=== PATIENT | female | born 1995 | race Caucasian/White ===

== ENCOUNTER 2016-05-07 17:32 | Inpatient (IN) | payer MEDICAID ==
[2016-05-07] MEDS ORDERED: fentaNYL 100 MCG/2 ML VIAL ONE (18:59)
[2016-05-07] MEDS ORDERED: BUPIVACAINE EP ONE (19:00)
[2016-05-07] MEDS ORDERED: SUFENTANIL EP ONE (19:00)
[2016-05-07] MEDS ORDERED: LACTATED RINGERS 1,000 ML IV SCH (19:00)
[2016-05-07] MEDS ORDERED: OXYTOCIN/LACTATED RINGERS 250 ML IV ONE (19:01)
[2016-05-07] MEDS ORDERED: PENICILLIN G POTASSIUM 5,000,000 UNIT in SODIUM CHLORIDE 0.9% MINIBAG 100 ML IV ONE (19:30)
[2016-05-07] MEDS ORDERED: HYDROcod/ACET 5/325 Prepack 6 PO PRN (20:35)
[2016-05-07] MEDS ORDERED: NAPROXEN 375 MG PO SCH (21:00)
[2016-05-07] MEDS ORDERED: SODIUM CHLORIDE FLUSH 0.9% 10 ML SYRINGE IVP ONE (21:30)
[2016-05-07] MEDS ORDERED: LABETALOL 100 MG TABLET PO SCH (23:00)
[2016-05-08] MEDS ORDERED: PENICILLIN G POTASSIUM 2,500,000 UNIT in SODIUM CHLORIDE 0.9% 100ML 100 ML IV SCH ×2
[2016-05-08] MEDS: IBUPROFEN 600 MG TABLET PO SCH ×2 (00:23→06:45)
[2016-05-08] MEDS ORDERED: SODIUM CHLORIDE FLUSH 0.9% 10 ML SYRINGE IVP ONE ×3 (00:57→16:15)
[2016-05-08] MEDS: LACTATED RINGERS 1,000 ML IV SCH (07:39)
[2016-05-08] MEDS: LABETALOL 100 MG TABLET PO SCH ×2 (08:19→21:19)
[2016-05-08] MEDS ORDERED: ACETAMINOPHEN 325 MG SUPP PR PRN (09:01)
[2016-05-08] MEDS: PRENATAL VITAMIN TABLET PO SCH (12:34)
[2016-05-08] MEDS: ACETAMINOPHEN 325 MG TABLET PO PRN ×2 (12:34→16:53)
[2016-05-08] MEDS: DOCUSATE SODIUM 100 MG CAPSULE PO SCH ×2 (12:34→21:18)
[2016-05-09] MEDS ORDERED: SODIUM CHLORIDE FLUSH 0.9% 10 ML SYRINGE IVP ONE (01:07)
[2016-05-09] MEDS: ACETAMINOPHEN 325 MG TABLET PO PRN ×3 (04:17→23:23)
[2016-05-09] MEDS: HYDROcod/ACETAM 5/325 MG TABLET PO PRN ×3 (05:02→13:39)
[2016-05-09] MEDS: PRENATAL VITAMIN TABLET PO SCH (08:30)
[2016-05-09] MEDS: LABETALOL 100 MG TABLET PO SCH ×2 (08:31→20:49)
[2016-05-09] MEDS: DOCUSATE SODIUM 100 MG CAPSULE PO SCH ×2 (08:31→20:49)
[2016-05-10] MEDS: PRENATAL VITAMIN TABLET PO SCH (08:32)
[2016-05-10] MEDS: LABETALOL 100 MG TABLET PO SCH (08:32)
[2016-05-10] MEDS: DOCUSATE SODIUM 100 MG CAPSULE PO SCH ×2 (08:32→21:04)
[2016-05-10] MEDS ORDERED: SODIUM CHLORIDE FLUSH 0.9% 10 ML SYRINGE IVP ONE ×2 (09:37→10:24)
[2016-05-10] MEDS ORDERED: MAGNESIUM SULFATE 5 GM/10 ML VIAL IV STA (09:48)
[2016-05-10] MEDS ORDERED: MAGNESIUM SULFATE 4 GM in SODIUM CHLORIDE 0.9% 50 ML IV SCH (10:00)
[2016-05-10] MEDS ORDERED: LACTATED RINGERS 1,000 ML IV ONE (10:05)
[2016-05-10] MEDS ORDERED: LABETALOL 100 MG TABLET PO SCH (10:20)
[2016-05-10] MEDS: MAGNESIUM SULFATE 2 GRAM 50 ML IV ONE ×2 (10:22→10:46)
[2016-05-10] MEDS ORDERED: MAGNESIUM SULFATE 2 GRAM 50 ML IV ONE (10:41)
[2016-05-10] MEDS: MAGNESIUM SULFATE 40 GM in LACTATED RINGERS 420 ML IV SCH (11:05)
[2016-05-10] MEDS: IBUPROFEN 600 MG TABLET PO SCH ×2 (12:15→18:14)
[2016-05-10] MEDS: ACETAMINOPHEN 325 MG TABLET PO PRN ×2 (15:09→20:01)
[2016-05-11] MEDS: IBUPROFEN 600 MG TABLET PO SCH ×5 (00:29→23:56)
[2016-05-11] MEDS ORDERED: LACTATED RINGERS 1,000 ML IV ONE (03:52)
[2016-05-11] MEDS: MAGNESIUM SULFATE 40 GM in LACTATED RINGERS 420 ML IV SCH (07:22)
[2016-05-11] MEDS ORDERED: LABETALOL 100 MG TABLET PO SCH (09:00)
[2016-05-11] MEDS: DOCUSATE SODIUM 100 MG CAPSULE PO SCH ×2 (09:25→21:44)
[2016-05-11] MEDS ORDERED: MAGNESIUM SULFATE 1 GM in SODIUM CHLORIDE 0.9% 50 ML IV ONE ×2 (10:24→17:57)
[2016-05-11] MEDS ORDERED: LABETALOL 100 MG TABLET PO ONE (11:00)
[2016-05-11] MEDS: LABETALOL 100 MG TABLET PO SCH (21:45)
[2016-05-12] MEDS ORDERED: SODIUM CHLORIDE FLUSH 0.9% 10 ML SYRINGE IVP ONE (08:58)
[2016-05-12] MEDS: DOCUSATE SODIUM 100 MG CAPSULE PO SCH (09:03)
[2016-05-12] MEDS: LABETALOL 100 MG TABLET PO SCH (09:03)
[2016-05-12] MEDS: IBUPROFEN 600 MG TABLET PO SCH ×2 (09:04→15:57)
[2016-05-12] MEDS: PRENATAL VITAMIN TABLET PO SCH (09:04)
== END 2016-05-12 18:00 | disposition home or self-care (01) | DRG 774 ==
PROC: 10E0XZZ Delivery of Products of Conception, External Approach (ICD-10-PCS; principal; 2016-05-07)
DX: O13.4 Gestational [pregnancy-induced] hypertension without significant proteinuria, complicating childbirth (principal); O14.25 HELLP syndrome, complicating the puerperium; Z3A.40 40 weeks gestation of pregnancy; Z37.0 Single live birth

== ENCOUNTER 2016-10-25 14:21 | Emergency (ER) | payer MEDICAID ==
[2016-10-25] MEDS ORDERED: AMOX/CLAV 875 MG/125 MG TABLET PO STA (14:38)
[2016-10-25] MEDS ORDERED: TETANUS/DIPHTHERIA/PERTUSSIS 0.5 ML SYRINGE IM ONE ×2 (14:38→14:56)
[2016-10-25] MEDS ORDERED: AMOX/CLAV 875 MG/125 MG TABLET PO ONE (14:56)
--- NOTE | 2016-10-25 15:21 | ED Physician Documentation ---
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 UTD denies preg Review of Systems Constitutional: denies: Fever, Chills : denies: Now EGA Skin: reports: Bite / sting PD PAST MEDICAL HISTORY - Past Medical History Cardiovascular: None Endocrine/Autoimmune: None Musculoskeletal: Chronic back pain - Past Surgical History Past Surgical History: No - Present Medications Home Medications: Ambulatory Orders Medication Instructions Recorded Confirmed Pnv95/Iron Fum/Folic Acid 1 each PO DAILY 11/13/15 10/25/16 [ Caplet] Amox/Clav 875/125 [Augmentin] 1 each PO Q12H #14 tablet 10/25/16 - Allergies Allergies/Adverse Reactions: Allergies Allergy/AdvReac Type Severity Reaction Status Date / Time No Known Drug Allergies Allergy Verified 10/25/16 14:26 - Social History Does the pt smoke?: Yes Smoking Status: Never smoker Does the pt drink ETOH?: No Does the pt have substance abuse?: No - Immunizations Immunizations are current?: Yes - POLST Patient has POLST: No PD ED PE NORMAL - Vitals Vital signs reviewed: Yes - Derm Derm: Other (soft tissue bruising in a bite shape with several abrasions and a puncture , MSV intact) Results - Vitals Vitals: Vital Signs - 24 hr 10/25/16 14:24 Temperature 36.8 C Heart Rate 107 H Respiratory 16 Rate Blood Pressure 146/100 H O2 Saturation 100 Oxygen O2 Source Room air Departure - Departure Disposition: 01 Home, Self Care Clinical Impression: Animal bite with open wound Condition: Good Instructions: ED Bite Animal General Prescriptions: Amox/Clav 875/125 [Augmentin] 1 each PO Q12H #14 tablet Comments: Please wash the wound and apply antibiotic ointment twice daily See your PMD or come back to the ER right away for any signs of infection such as increased redness or drainage or severe pain or a fever Also please follow up with your PMD to get your blood pressure rechecked - it was high today
[2016-10-25 15:44] VITALS: BP 135/87
== END 2016-10-25 15:47 | disposition home or self-care (01) ==
LOC: ED 14:21
DX: S51.851A Open bite of right forearm, initial encounter (principal); W54.0XXA Bitten by dog, initial encounter; Z23 Encounter for immunization
CPT/HCPCS: 90471; 90715; 99283; A9270